=== PATIENT | male | born 1970 ===

== ENCOUNTER 2021-03-15 11:15 | Inpatient (IN) | payer OTHER ==
[2021-03-15] MEDS ORDERED: PROTONIX40 MG PO (13:34)
[2021-03-20] MEDS ORDERED: ATORVASTATIN CA20 MG (13:11)
[2021-03-20] MEDS ORDERED: AMLODIPINE-BEN1 EAC3 (13:11)
[2021-03-23] MEDS ORDERED: HYOSCYAMINE0.125 M1 SL (11:19)
[2021-03-23] MEDS ORDERED: OXYC1TAB9 PO (11:20)
[2021-03-23] MEDS ORDERED: INTESTINEX680 M1 PO (11:20)
[2021-03-23] MEDS ORDERED: PANTOPRAZOLE SO40 MG PO (11:20)
== END 2021-03-23 13:03 | disposition home or self-care (01) | DRG 331 ==
LOC: O/R 03-20 05:55 → SURG 03-20 05:55 → SURH 03-20 11:15 → SURG 03-20 23:53
PROVIDERS: ADMIT Surgery; ATTEND Surgery
PROC: 07BD3ZX Excision of Aortic Lymphatic, Percutaneous Approach, Diagnostic (ICD-10-PCS; 2021-03-20)
PROC: 3E0F7SF Introduction of Other Gas into Respiratory Tract, Via Natural or Artificial Opening (ICD-10-PCS; 2021-03-20)
PROC: 0DBF4ZZ Excision of Right Large Intestine, Percutaneous Endoscopic Approach (ICD-10-PCS; principal; 2021-03-20 14:45)
DX: D12.0 Benign neoplasm of cecum (principal); I10 Essential (primary) hypertension